=== PATIENT | male | born 1975 | race African-American/Black ===

== ENCOUNTER 2022-02-06 09:34 | Inpatient (IN) | payer SELFPAY ==
[2022-02-06 10:11] LABS: Absolute Lymphocytes (CBC) 1.5 K/uL (0.7-4.9); Lymphocytes % 30.4 % (15.3-44.8); MCV 95.2 fL (80-100); RBC Red Blood Cell Count 4.41 M/uL (4.33-5.43)
[2022-02-06] MEDS ORDERED: ASPIRIN 81 MG CHEWABLE TABLET ONE (10:14)
--- NOTE | 2022-02-06 10:23 | RAD REPORT ---
EXAM DESCRIPTION: RAD - Chest Single View - 02/06/2022 10:09 am CLINICAL HISTORY: Chest pain COMPARISON: None TECHNIQUE: AP portable chest image was obtained 02/06/2022 10:09 am . FINDINGS: Lungs are clear. Heart and vasculature are normal. No measurable pleural effusion and no p neumothorax. No acute bony abnormality seen. No acute aortic findings suspected. IMPRESSION: No acute cardiopulmonary process.
[2022-02-06 10:54] LABS: Potassium 4.3 mmol/L (3.5-5.1); Troponin High Sensitivity 44.9 pg/mL (<58.9)
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
[2022-02-06] MEDS ORDERED: MORPHINE 4 MG/ML SYR ONE (13:18)
[2022-02-06] MEDS ORDERED: ONDANSETRON 4 MG/2 ML VIAL ONE (13:18)
[2022-02-06] MEDS ORDERED: HEPA 1000U/500MLS 1,000 UNIT/500 ML BAG IV ONE (13:25)
[2022-02-06] MEDS ORDERED: NA CHLORIDE 0.9% 50 ML ONE (13:26)
[2022-02-06] MEDS ORDERED: MIDAZOLAM HCL 2 MG/2 ML INJ ONE (13:26)
[2022-02-06] MEDS ORDERED: ATROPINE SULF 1 MG/10 ML SYR IV ONE (13:26)
[2022-02-06] MEDS ORDERED: FENTANYL CITR 100 MCG/2 ML ONE (13:26)
[2022-02-06] MEDS ORDERED: NA CHLORIDE 0.9% 500 ML ONE (13:51)
[2022-02-06] MEDS ORDERED: NITROPRUSSIDE 50 MG VIAL IV ONE (14:01)
[2022-02-06 14:17] VITALS: O2SAT 100
[2022-02-06] MEDS ORDERED: ACETAMINOPHEN 500 MG TAB PO PRN (14:21)
[2022-02-06 15:01] VITALS: BMI 30.8
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
[2022-02-06] MEDS ORDERED: NITROGLYCERIN 0.4 MG/TAB SL PRN (16:43)
[2022-02-06] MEDS ORDERED: ACETAMINOPHEN 325 MG TABLET PO PRN (16:43)
[2022-02-06] MEDS ORDERED: NA CHLORIDE 0.9% 1,000 ML IV PRN (16:44)
[2022-02-06] MEDS: ENOXAPARIN 40 MG/0.4 ML SQ SCH (17:06)
[2022-02-06] MEDS ORDERED: DIAZEPAM 5 MG TABLET PO ONE (20:54)
[2022-02-06] MEDS ORDERED: ATORVASTATIN 20 MG TAB PO SCH (21:00)
[2022-02-06] MEDS ORDERED: METOPROLOL TAR 50 MG TAB PO SCH (21:00)
--- NOTE | 2022-02-06 23:23 | OP ---
Surgeon: Jamie Morrison MD Slat Grader: Ms. Trish Danielle We will observe the patient overnight and sent him home tomorrow morning. Admitted to the emergency room with an EKG showing acute ID in the anterior wall with pain for about 2 days. He was brought to the [facility], prepped and draped in the routine sterile fashion. Given Ve rsed and fentanyl for sedation. A 6-English sheath was introduced in the right common femoral artery successfully using the Seldinger technique and 10 cc the xylocaine. A common femoral artery angiogra m was normal. Angio-Seal was used to close the case. Kassi catheter surprisingly showed normal co ronaries on the left side and the right side and he was left dominant. The patient tolerated the pro cedure well. There were no complications. Blood Loss: 5 mL. Postoperative Diagnosis: Status post acute myocardial infarction, possibly coronary artery spasm. P lans for medical therapy with calcium blockers. AYANNA/GENESIS Voice ID: [id number] Report ID: [id number]
[2022-02-07 04:02] LABS: Absolute Lymphocytes (CBC) 2.1 K/uL (0.7-4.9); Hematocrit 40.3 % (39.6-49.0); Lymphocytes % 38.5 % (15.3-44.8); MCV 96.6 fL (80-100); MPV 8.4 fL (7.6-11.3); RBC Red Blood Cell Count 4.17 M/uL (4.33-5.43)
[2022-02-07 04:27] LABS: ALT/SGPT 55 U/L (12-78); Albumin 3.2 g/dL (3.4-5.0); Alkaline Phosphatase 75 U/L (45-117); BUN Blood Urea Nitrogen 19 mg/dL (7-18); Bicarbonate 29 mmol/L (21-32); Bilirubin Total 0.3 mg/dL (0.2-1.0); Glomerular Filtration Rate 100 ml/min (=/>90); Glucose Level 122 mg/dL (74-106); HDL Cholesterol 41 mg/dL (40-60); NT PRO-BNP 34 pg/mL (<125); Phosphorus 3.1 mg/dL (2.5-4.9); Protein, Total 6.7 g/dL (6.4-8.2); Sodium Level 137 mmol/L (136-145)
[2022-02-07 04:28] LABS: AST/SGOT 45 U/L (15-37); Magnesium 2.2 mg/dL (1.8-2.4); Potassium 4.6 mmol/L (3.5-5.1)
[2022-02-07 04:39] LABS: LDL, Direct 92 mg/dL (100-129)
[2022-02-07] MEDS: ENOXAPARIN 40 MG/0.4 ML SQ SCH (08:44)
[2022-02-07] MEDS ORDERED: CLOPIDOGREL 75 MG TABLET PO SCH (09:00)
[2022-02-07] MEDS ORDERED: ASPIRIN EC 81 MG TAB PO SCH (09:00)
[2022-02-07] MEDS ORDERED: AMLODIPINE 10 MG TAB PO SCH (09:00)
--- NOTE | 2022-02-07 10:23 | CON ---
Date of Consultation: 02/06/2022 The patient was seen in the labor economics professor on 02/06/2022 after he was brought from the emergency room emerg ently because of what appeared to be chest pain and ST elevation in the anterior lead. The patient h as had chest pain for approximately a week or 2. When he came to the emergency room, he was admitted to Dr. Tran. Reason For Consultation: Abnormal EKG, possible acute UT with chest pain in a patient with history o f hypertension, dyslipidemia, and diabetes. In the labor economics professor, the patient was still having some chest pain he is in sinus rhythm. Physical Examination: Vital Signs: Stable. He was afebrile. Chest: The patient had a clear chest. Cardiac: Normal. Abdomen: Benign. Extremities: Revealed no clubbing, cyanosis, or edema. Allergies: HE REPORTED NO ALLERGIES. Medications: Listed by Dr. Tran. Laboratory Data: Significant for very elevated triglyceride with elevated cholesterol. His kidney f unction is adequate. Assessment And Plan: I proceeded with the catheterization that day and details as far as the cathete rization are present in the operative report. The patient was to be admitted that day for observatio n after the catheterization and further evaluation regarding his dyslipidemia and hypertension. AYANNA/GENESIS Voice ID: [id number] Report ID: [id number]
--- NOTE | 2022-02-09 11:59 | EKG ---
Test Date: 2022-02-06 Test Time: 09:59:21 Master Printer: REINA MEASUREMENT RESULTS: Intervals: Rate: 67 DC: 142 QRSD: 88 QT: 376 QTc: 397 [place]: P: 63 DC: 142 QRS: 30 T: 268 INTERPRETIVE STATEMENTS: Normal sinus rhythm ST elevation, consider anterior injury or acute infarct ACUTE OK / STEMI Abnormal ECG Compared to ECG 11/07/1998 22:03:00 Myocardial infarct finding now present Left ventricular hypertrophy no longer present ST (T wave) deviation still present Electronically Signed On 02-09-22 11:52:32 CDT by Jamie Morrison
--- NOTE | 2022-02-09 11:59 | EKG ---
Test Date: 2022-02-06 Test Time: 10:00:04 Title I Teacher: REINA MEASUREMENT RESULTS: Intervals: Rate: 65 IN: 148 QRSD: 88 QT: 380 QTc: 395 [place]: P: 59 IN: 148 QRS: 31 T: 263 INTERPRETIVE STATEMENTS: Normal sinus rhythm ST elevation, consider anterior injury or acute infarct ACUTE VA / STEMI Abnormal ECG Compared to ECG 02/06/2022 09:59:21 No significant changes Electronically Signed On 02-09-22 11:52:30 CDT by Jamie Morrison
--- NOTE | 2022-02-09 11:59 | EKG ---
Test Date: 2022-02-06 Test Time: 11:41:02 Intelligence Support Officer: RADHA MEASUREMENT RESULTS: Intervals: Rate: 62 IN: 152 QRSD: 84 QT: 382 QTc: 387 [place]: P: 50 IN: 152 QRS: 27 T: -86 INTERPRETIVE STATEMENTS: Normal sinus rhythm ST elevation, consider anterior injury or acute infarct ACUTE SC / STEMI Abnormal ECG Compared to ECG 02/06/2022 10:00:04 No significant changes Electronically Signed On 02-09-22 11:52:19 CDT by Jamie Morrison
[2022-02-22 15:47] VITALS: BP 152/86; TEMP 97.5
== END 2022-02-07 09:07 | disposition home or self-care (01) | DRG 282 ==
LOC: ER 09:34 → ERHOLD 14:22 → 2ND 15:43
PROVIDERS: ADMIT Hospitalist; ATTEND Hospitalist
PROC: B2011ZZ Plain Radiography of Multiple Coronary Arteries using Low Osmolar Contrast (ICD-10-PCS; principal; 2022-02-06)
DX: I21.09 ST elevation (STEMI) myocardial infarction involving other coronary artery of anterior wall (principal); I20.1 Angina pectoris with documented spasm; I10 Essential (primary) hypertension; E78.5 Hyperlipidemia, unspecified; E11.9 Type 2 diabetes mellitus without complications; Z20.822 Contact with and (suspected) exposure to COVID-19
CPT/HCPCS: 36415; 71045; 80048; 80053; 80061; 83735; 83880; 84100; 84484; 85025; 85379; 93005; 93454; 96374; 96375; 99285; C1760; C1893; G0269; J0583; J1644; J1650; J2250; J2405; J3010; J7040; J7060; Q9966; U0003

== ENCOUNTER 2022-04-09 10:53 | Emergency (ER) | payer SELFPAY ==
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
[2022-04-09 12:32] VITALS: TEMP 97.5; O2SAT 100
[2022-04-09 12:34] VITALS: BP 151/97
== END 2022-04-09 12:17 | disposition home or self-care (01) ==
LOC: ER 10:53
DX: I10 Essential (primary) hypertension (principal); E11.9 Type 2 diabetes mellitus without complications; F17.210 Nicotine dependence, cigarettes, uncomplicated
CPT/HCPCS: 99284